=== PATIENT | female | born 1995 | race Caucasian/White ===

== ENCOUNTER 2018-07-05 12:53 | Outpatient (CLI) | payer BC ==
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
--- NOTE | 2018-07-05 15:16 | MRI ---
MRI THORACIC SPINE WITHOUT CONTRAST: HISTORY: Thoracic spine pain, M54.6. COMPARISON: None available. FINDINGS: The vertebral body heights and disk spaces are maintained. No fracture. No malalignment. No endpla te Schmorl's node. The visualized sternum and manubrium are intact. The aortic contour is nonaneurysmal. No hydronephrosis. No significant pleural effusion. Cord signal is normal. No cord abutment. The spinal canal is patent, as well as the neural foramina . No disk herniation. The paraspinal musculature is normal. No hemorrhage. No edema. No intramuscular edema. No evidenc e for ligamentous injury. IMPRESSION: Normal MRI thoracic spine. POS: [facility]
== END 2018-07-05 12:54 | disposition home or self-care (01) ==
LOC: BICMRI 12:53
PROVIDERS: ATTEND Neurological Surgery
DX: M54.2 Cervicalgia (principal); M54.6 Pain in thoracic spine; G95.89 Other specified diseases of spinal cord
CPT/HCPCS: 72141; 72146

== ENCOUNTER 2018-10-11 07:11 | Outpatient (CLI) | payer BC ==
--- NOTE | 2018-10-11 09:29 | RAD ---
Exam: Upper GI with contrast HISTORY: Abdominal pain. Nausea. Vomiting FINDINGS: Initial supine program director scouting radiograph demonstrates a nonspecific bowel gas pattern. No suspicious densities in the abdomen or pelvis. No pneumoperitoneum on supine projection The thoracic esophagus has a normal course and caliber. There is evidence of reflux during intermitte nt fluoroscopy. No mucosal abnormality Gastric mucosa, duodenum and proximal small bowel loops are unremarkable Postprocedure supine and upright radiographs are unremarkable IMPRESSION: Intermittent reflux during fluoroscopy.
== END 2018-10-11 07:12 | disposition home or self-care (01) ==
LOC: RAD 07:11
PROVIDERS: ATTEND Internal Medicine Gastroenterology
DX: R10.9 Unspecified abdominal pain (principal); R11.2 Nausea with vomiting, unspecified; K21.9 Gastro-esophageal reflux disease without esophagitis
CPT/HCPCS: 74247